=== PATIENT | female | born 1940 | race African-American/Black ===

== ENCOUNTER 2023-09-28 09:22 | Emergency (ER) | payer OTHER ==
[~2023-09-28] VITALS: Ht 170.2 cm; Wt 120.0 kg
[2023-09-28 09:26] VITALS: O2SAT 98
[2023-09-28 10:19] LABS: BASOPHILS % 0.6 % (0.0-2.0); EOSINOPHILS % 4.1 % (0.0-5.0); HEMATOCRIT. 33.2 % (36.0-48.0); MEAN CORPUSCULAR HEMOGLOBIN 32.5 pg (28.0-32.0); MEAN CORPUSCULAR VOLUME 98.5 fL (81.0-99.0); MEAN PLATELET VOLUME 8.7 fl (7.4-10.4); MONOCYTES % 8.3 % (2.0-8.0); PLATELET 240 x1000/uL (130-400); RED BLOOD CELL COUNT 3.37 mill/uL (4.2-5.4); RED CELL DISTRIBUTION WIDTH 14.4 % (11.6-14.6)
[2023-09-28 10:25] LABS: CARBON DIOXIDE 28 mEq/L (21-32); CHLORIDE 107 mEq/L (98-107); POTASSIUM 3.3 mEq/L (3.5-5.1); SODIUM 140 mEq/L (136-145)
[2023-09-28 10:26] LABS: CALCIUM 8.7 mg/dL (8.7-10.4)
[2023-09-28 10:30] LABS: TROPONIN I HIGH SENSITIVITY 10 ng/L (3.0-34)
[2023-09-28 10:31] LABS: CREATININE 1.1 mg/dL (0.6-1.0); GLUCOSE 110 mg/dL (70-105); UREA NITROGEN BLOOD 21 mg/dL (9-23)
[2023-09-28 10:32] LABS: ALANINE AMINOTRANSFERASE < 7 IU/L (10-49); ALBUMIN 3.7 g/dL (3.2-4.8)
[2023-09-28 10:33] LABS: ASPARTATE AMINOTRANSFERASE 15 IU/L (<34); BILIRUBIN DIRECT 0.1 mg/dL (<=3.0); BILIRUBIN TOTAL 0.4 mg/dL (0.1-1.0); PROTEIN TOTAL 6.6 g/dL (6.0-8.3)
[2023-09-28] MEDS: ONDANSETRON HCL 4MG/2ML INJ IV ONE (10:42)
[2023-09-28] MEDS: MECLIZINE 25MG TABLET PO ONE (10:50)
[2023-09-28 12:49] LABS: TROPONIN I HIGH SENSITIVITY 21 ng/L (3.0-34)
[2023-09-28] MEDS: HYDRALAZINE 20MG/ML VIAL IV NR (16:05)
[2023-09-28] MEDS ORDERED: ACETAMINOPHEN 325MG TABLET PO PRN (16:30)
[2023-09-28] MEDS ORDERED: ONDANSETRON HCL 4MG/2ML INJ IV PRN (16:30)
[2023-09-28] MEDS ORDERED: IPRATROPIUM/ALBUTEROL 0.5-3(2.5)MG/3ML NEB NEB PRN (16:30)
[2023-09-28] MEDS ORDERED: HYDRALAZINE 20MG/ML VIAL IV PRN (16:30)
[2023-09-28 17:14] VITALS: BP 165/54; PULSE 56; RESP 18; TEMP 98.7
[2023-09-28] MEDS ORDERED: MECLIZINE 25MG TABLET PO SCH (17:30)
[2023-09-28] MEDS ORDERED: AMLODIPINE 5MG TABLET PO SCH (17:30)
[2023-09-28] MEDS ORDERED: LOSARTAN 50 MG TABLET PO SCH (17:30)
[2023-09-28] MEDS ORDERED: ENOXAPARIN 30MG/0.3ML SYR SUBCUT SCH (18:00)
[2023-09-29] MEDS ORDERED: FUROSEMIDE 40MG TABLET PO SCH (09:00)
== END 2023-09-28 19:57 | disposition admitted as inpatient to this hospital (09) ==
LOC: ER 09:47 → EDBEDREQTM 12:55 → EDBEDREQ 12:55 → ER 19:57
DX: R42 Dizziness and giddiness (principal); R94.4 Abnormal results of kidney function studies; E78.00 Pure hypercholesterolemia, unspecified; I10 Essential (primary) hypertension; Z88.5 Allergy status to narcotic agent
CPT/HCPCS: 99285; 96374; 70450; 71045; 96375; 80076; 80048; 82962; 83690; 85025; 84484; 36415; 93005; J8597; J0360; J2405